=== PATIENT | female | born 1970 | race Caucasian/White ===

== ENCOUNTER → 2021-02-02 | Outpatient (CLI) | payer BC, OTHER ==
[2021-02-03 08:14] LABS: VITAMIN D, 25-HYDROXY 42.2 ng/mL (30.0-100.0)
[2021-02-03 15:11] LABS: ALDOLASE 5.4 U/L (3.3-10.3)
== END ==
LOC: LAB 12:05
PROVIDERS: Internal Medicine
DX: R76.8 Other specified abnormal immunological findings in serum (principal); M25.50 Pain in unspecified joint; F32.9 Major depressive disorder, single episode, unspecified; E61.1 Iron deficiency; E55.9 Vitamin D deficiency, unspecified; D89.89 Other specified disorders involving the immune mechanism, not elsewhere classified
CPT/HCPCS: 36415; 82085; 82164; 82550; 82728; 85652; 86140; 86160